=== PATIENT | female | born 1950 | race Caucasian/White ===

== ENCOUNTER 2022-12-04 13:26 | Outpatient (CLI) | payer OTHER, SELFPAY ==
--- NOTE | ~2022-12-04 | PE_ITS ---
EXAMINATION: PET skull to mid thigh DATE: 12/04/2022 15:11 INDICATION: Urothelial carcinoma of the right kidney TECHNIQUE: Blood glucose level was 84 mg/dL. 11.369 mCi of 18-fluorodeoxyglucose (18-FDG) was adminis tered i.v. Low dose computed tomography (CT) images were acquired from the base of the brain to the p roximal thighs for attenuation correction and anatomic localization. Positron emission tomography (PE T) images were acquired in the same distribution beginning 53 minutes after injection. The dose-lengt h product (DLP) was 481.20 mGy-cm. COMPARISON: None FINDINGS: Head/neck: No abnormal FDG uptake is identified. Mild FDG uptake in the extraocular muscles cavity is likely physiologic given the absence of suspicious CT correlate. Chest: No abnormal FDG uptake is identified. There is mild dependent atelectasis. No pleural effusion or pneumothorax. No pathologically enlarged thoracic lymph nodes are identified. The heart size is n ormal. Abdomen/pelvis/proximal thighs: Although limited by the absence of intravenous contrast, there appear s to be a 4.5 x 3.2 cm mass of the right mid kidney with abnormal FDG uptake. There is a 1.3 cm right retroperitoneal lymph node just cranial to the level of the right kidney with abnormal FDG uptake. T here is physiologic FDG uptake in the bowel. The liver, spleen, pancreas, gallbladder, adrenal glands , and left kidney are unremarkable. There are no pathologically enlarged pelvic lymph nodes. No free intraperitoneal gas or evidence of bowel obstruction. Musculoskeletal: No abnormal FDG uptake is identified. There is mild cervical spondylosis. IMPRESSION: 1. Right kidney mass with abnormal FDG uptake, consistent with history of urothelial carcinoma. 2. Enlarged right retroperitoneal lymph node with abnormal FDG uptake, consistent with metastatic dis ease. Reviewed, dictated and finalized at location A. IMPRESSION: 1. Right kidney mass with abnormal FDG uptake, consistent with history of uroth elial carcinoma. 2. Enlarged right retroperitoneal lymph node with abnormal FDG uptake, consiste nt with metastatic disease.
[2022-12-04 13:49] LABS: Glucose Point of Care 84 mg/dl (65-105)
== END 2022-12-04 13:27 | disposition home or self-care (01) ==
PROVIDERS: PCP Family Medicine; Visit Provider Urology
DX: C64.9 Malignant neoplasm of unspecified kidney, except renal pelvis (principal)
CPT/HCPCS: 78815; A9552

== ENCOUNTER 2023-03-19 07:28 | Outpatient (CLI) | payer OTHER, SELFPAY ==
--- NOTE | ~2023-03-19 | PE_ITS ---
EXAMINATION: PET skull to mid thigh DATE: 03/19/2023 09:25 INDICATION: Malignant neoplasm of right ureter. TECHNIQUE: Blood glucose level was 86 mg/dL. 10.720 mCi of 18-fluorodeoxyglucose (18-FDG) was adminis tered i.v. Low dose computed tomography (CT) images were acquired from the base of the brain to the p roximal thighs for attenuation correction and anatomic localization. Automated exposure control was e mployed. Dose-length product (DLP) was 481 mGy-cm. Positron emission tomography (PET) images were acq uired in the same distribution. COMPARISON: PET CT 12/04/2022 FINDINGS: Head/neck: There are no pathologically enlarged lymph nodes. Chest: The lungs demonstrate minimal atelectasis. No pleural effusion. The heart size is normal. No p ericardial effusion. There is diffusely increased activity in the bone marrow. Abdomen/pelvis/proximal thighs: The liver is normal. The gallbladder is normal in size. The spleen, p ancreas, adrenal glands, and left kidney are normal. There is severe right hydronephrosis. There is a n ill-defined mass at the hilum of right kidney. There are no dilated loops of bowel. There is no glenis e intraperitoneal fluid. There is a normal-sized aortocaval lymph node with maximum SUV of 6.1. There is diffusely increased activity in the bone marrow. IMPRESSION: 1. Ill-defined mass at the hilum of right kidney with severe right hydronephrosis suspicious for apollo gnancy. Abdomen CT without and with contrast is recommended for improved anatomic detail. 2. Normal-sized aortocaval lymph node with increased activity with interval decrease in size suspicio us for metastatic disease. 3. Diffusely increased bone marrow activity without abnormal CT correlate, new from 12/04/2022, likely bone marrow stimulation. Reviewed, dictated and finalized at location E. IMPRESSION: 1. Ill-defined mass at the hilum of right kidney with severe right hydronephros is suspicious for malignancy. Abdomen CT without and with contrast is recommend ed for improved anatomic detail. 2. Normal-sized aortocaval lymph node with increased activity with interval dec rease in size suspicious for metastatic disease. 3. Diffusely increased bone marrow activity without abnormal CT correlate, new from 12/04/2022, likely bone marrow stimulation.
[2023-03-19 08:02] LABS: Glucose Point of Care 86 mg/dl (65-105)
== END 2023-03-19 07:29 | disposition home or self-care (01) ==
PROVIDERS: PCP Family Medicine; Visit Provider Internal Medicine Medical Oncology
DX: C66.1 Malignant neoplasm of right ureter (principal); C77.5 Secondary and unspecified malignant neoplasm of intrapelvic lymph nodes
CPT/HCPCS: 78815; A9552

== ENCOUNTER 2023-06-09 07:53 | Outpatient (CLI) | payer OTHER, SELFPAY ==
--- NOTE | ~2023-06-09 | PE_ITS ---
EXAMINATION: PET skull to mid thigh DATE: 06/09/2023 09:57 INDICATION: Malignant neoplasm of the right ureter TECHNIQUE: Blood glucose level was 76 mg/dL. 9.3-0 mCi of 18-fluorodeoxyglucose (18-FDG) was administ ered i.v. Low dose computed tomography (CT) images were acquired from the base of the brain to the pr oximal thighs for attenuation correction and anatomic localization. Positron emission tomography (PET ) images were acquired in the same distribution beginning 64 minutes after injection. The dose-length product (DLP) was 485.41 mGy-cm. COMPARISON: 03/19/2023, 12/04/2022 FINDINGS: Head/neck: No abnormal FDG uptake is identified. FDG uptake in the vocal cords without suspicious CT correlate is likely physiologic. Chest: No abnormal FDG uptake is identified. There is mild dependent atelectasis. No pleural effusion or pneumothorax. No pathologically enlarged thoracic lymph nodes are identified. The heart size is n ormal. Abdomen/pelvis/proximal thighs: There are changes of interval right nephrectomy. Physiologic FDG acti vity is present in the bowel and urinary tract. Again noted is a right retroperitoneal lymph node maci r the surgical resection site with abnormal FDG uptake and SUV max of 10.2. No additional suspicious FDG uptake is identified. There are midline surgical changes in the stomach with low-level FDG uptake , likely inflammatory. The liver, spleen, pancreas, gallbladder, and adrenal glands are normal. The l eft kidney is unremarkable. No free intraperitoneal gas or evidence of bowel obstruction. Musculoskeletal: There is a new focal area of FDG uptake in the T1 vertebral body with an SUV max of 7.6. IMPRESSION: 1. Changes of interval right nephrectomy with persistent abnormal FDG uptake in a normal size right r etroperitoneal lymph node, concerning for metastatic disease. 2. New focus of abnormal FDG uptake in the T1 vertebral body which could reflect metastatic disease. Reviewed, dictated and finalized at location L. RHEUMATOLOGY IMPRESSION: 1. Changes of interval right nephrectomy with persistent abnormal FDG uptake in a normal size right retroperitoneal lymph node, concerning for metastatic dise ase. 2. New focus of abnormal FDG uptake in the T1 vertebral body which could reflec t metastatic disease.
[2023-06-09 08:17] LABS: Glucose Point of Care 76 mg/dl (65-105)
== END 2023-06-09 07:54 | disposition home or self-care (01) ==
LOC: ANHIMG 07:55
PROVIDERS: PCP Family Medicine; Visit Provider Internal Medicine Medical Oncology
DX: C66.1 Malignant neoplasm of right ureter (principal); C77.5 Secondary and unspecified malignant neoplasm of intrapelvic lymph nodes
CPT/HCPCS: 78815; A9552

== ENCOUNTER 2024-01-27 13:49 | Outpatient (CLI) | payer OTHER, SELFPAY ==
--- NOTE | ~2024-01-27 | MR_ITS ---
EXAMINATION: MR lumbar spine wo/w con DATE: 01/27/2024 15:21 INDICATION: Closed wedge fracture of thoracic vertebra. Neck pain. Ureteral cancer. TECHNIQUE: Magnetic resonance imaging (MRI) of the lumbar spine was performed without and with 9 mL M ultiHance intravenous contrast. COMPARISON: None FINDINGS: There is 3 degrees levoscoliosis of lumbar spine. Vertebral body heights are normal. There is mildly decreased disc height at L3-L4. The distal spinal cord signal intensity is normal. The conu s medullaris is at T12. The following disc levels are specifically discussed: L1-L2: The disc does not extend beyond the endplate margin. There is mild bilateral facet joint osteo arthritis. There is no neural foraminal stenosis. There is no central canal stenosis. L2-L3: The disc is bulging. There is severe right and moderate left facet joint osteoarthritis. There is mild bilateral neural foraminal stenosis. There is mild central canal stenosis. L3-L4: The disc is bulging. There is mild bilateral facet joint osteoarthritis. There is mild bilater al neural foraminal stenosis. There is mild central canal stenosis. L4-L5: The disc does not extend beyond the endplate margin. There is mild bilateral facet joint osteo arthritis. There is no neural foraminal stenosis. There is no central canal stenosis. L5-S1: The disc is bulging. There is severe bilateral facet joint osteoarthritis. There is mild right neural foraminal stenosis. There is mild central canal stenosis. IMPRESSION: 1. Mild lumbar spondylosis. Reviewed, dictated and finalized at location A. IMPRESSION: 1. Mild lumbar spondylosis.
--- NOTE | ~2024-01-27 | MR_ITS ---
MRI of the cervical spine Clinical History: Neck pain Technique: Axial T2-weighted and gradient images, and sagittal T1-weighted, T2-weighted, and STIR erlin ges were acquired. Following intravenous administration of 9 cc MultiHance gadolinium, T1-weighted fa t-sat imaging was performed in the axial and sagittal planes. Findings: No fracture or subluxation identified. There is diffuse T1 hypointensity involving the T1 v ertebral body, which is hyperintense on fluid sensitive sequences. There is extensive postcontrast en hancement of the T1 vertebral body, with an area of nonenhancement corresponding to fluid signal whic h could reflect an area of osteonecrosis. No loss of height or fracture of this vertebral body seen. No other suspicious bone marrow signal abnormality identified. At C2-C3 and C3-C4, there is no disc bulge or herniation. No spinal canal stenosis, cord compression, or neural foraminal narrowing at these levels. At C4-C5, there is degenerative disc narrowing with mild disc osteophyte complex. No spinal canal sridevi nosis or cord compression. Probable mild right neural foraminal narrowing. Left neural foramen preser khoa. At C5-C6, there is advanced degenerative distended. There is mild disc osteophyte complex. No spinal canal stenosis, cord compression, or neural foraminal narrowing. At C6-C7, there is advanced degenerative disc narrowing. There is minimal disc osteophyte complex. No spinal canal stenosis, cord compression, or neural foraminal narrowing. No abnormal signal seen in the spinal cord. No epidural mass or collection seen. Paravertebral soft t issues are unremarkable. No other abnormal postcontrast enhancement identified. 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 No loss of height/fracture identified. Mild degenerative spondylosis in the cervical spine, as above. Reviewed, dictated and finalized at [facility]. Impression: Metastatic lesion extensively involving the T1 vertebral body with probable are a of intraosseous necrosis. No loss of height/fracture identified. Mild degenerative spondylosis in the cervical spine, as above.
--- NOTE | ~2024-01-27 | MR_ITS ---
MRI of the thoracic spine Clinical History: Pain Technique: Axial T2-weighted and gradient images, and sagittal T1-weighted, T2-weighted, and STIR erlin ges were acquired. Findings: No fracture or subluxations seen. There is extensive marked hypointense T1 signal throughou t the T1 vertebral body, which is heterogeneously hyperintense on fluid sensitive sequences. No other bone marrow signal abnormality seen. There are mild degenerative disc changes in the upper half of the thoracic spine. No disc bulge or he rniation evident at any thoracic level. No spinal canal stenosis or cord compression identified. Neur al foramina are preserved throughout the thoracic spine. No abnormal signal seen in the spinal cord. No epidural mass or collection seen. Paravertebral soft t issues are unremarkable. There is extensive postcontrast enhancement of the T1 vertebral body, with area possible necrotic susanne nge within the bone. Impression: Metastatic lesion extensively involving the T1 vertebral body, with probable area of osseous necrosis present. No fracture or loss of height evident. No epidural extension of disease identified. Reviewed, dictated and finalized at location . Impression: Metastatic lesion extensively involving the T1 vertebral body, with probable ar ea of osseous necrosis present. No fracture or loss of height evident. No epidu ral extension of disease identified.
== END 2024-01-27 13:50 ==
LOC: MICIMG 13:52
PROVIDERS: PCP Internal Medicine Medical Oncology
DX: S22.000A Wedge compression fracture of unspecified thoracic vertebra, initial encounter for closed fracture (principal); X58.XXXA Exposure to other specified factors, initial encounter; M47.892 Other spondylosis, cervical region; M47.896 Other spondylosis, lumbar region
CPT/HCPCS: 72146; 72156; 72158; A9577